=== PATIENT | male | born 1965 | race American Indian/Alaskan Native ===

== ENCOUNTER 2016-05-15 22:22 | Emergency (ER) | payer SELFPAY ==
[2016-05-15 22:50] VITALS: BP 150/99
[2016-05-15 23:19] LABS: Basophils % (Auto) 0.6 % (0.0-1.8); Eosinophils % (Auto) 1.5 % (0.0-4.3); Hematocrit 31.1 % (35.5-45.6); Hemoglobin 10.6 gm/dl (11.8-15.2); Mean Corpuscular HGB Conc 34 % (32-34); Mean Corpuscular Hemoglobin 29 pg (28-32); Mean Corpuscular Volume 84 fl (84-94); Platelet Count 244 K/mm3 (140-440); Red Blood Count 3.72 M/mm3 (3.65-5.03); White Blood Count 9.3 K/mm3 (4.5-11.0)
[2016-05-15 23:22] LABS: Red Cell Distribution Width 20.4 % (13.2-15.2)
[2016-05-15 23:28] LABS: BUN/Creatinine Ratio 7.27; Blood Urea Nitrogen 8 mg/dL (9-20); Calcium 8.3 mg/dL (8.4-10.2); Carbon Dioxide 27 mmol/L (22-30); Chloride 98.8 mmol/L (98-107); Glucose 93 mg/dL (75-100); Potassium 3.1 mmol/L (3.6-5.0); Sodium 139 mmol/L (137-145)
[2016-05-15 23:29] LABS: Anion Gap 16 mmol/L
--- NOTE | 2016-05-16 02:49 | Emergency Department Report ---
ED General Adult HPI - General Chief complaint: Chest Pain Stated complaint: SOB/DIZZINESS Time Seen by Provider: 05/16/16 02:28 Source: patient Mode of arrival: Ambulatory Limitations: No Limitations - History of Present Illness Initial comments: 50-year-old male presents to the emergency department complaining of 4 days of difficulty breathing, lightheadedness, and weakness in his legs. Symptoms are intermittent. He states he has been out of his Cardizem for the past 4 days. He states the symptoms are the same as previous times when he has run out of his medication. He denies any chest pain. At this time, the patient reports his symptoms have resolved. There are no other complaints. -: Gradual, days(s) (4) Severity scale (0 -10): 0 Consistency: intermittent Improves with: none Worsens with: none Associated Symptoms: shortness of breath, weakness Treatments Prior to Arrival: none - Related Data Previous Rx's Medication Instructions Recorded Last Taken Type Apixaban [Eliquis] 5 mg PO Q12HR #60 tablet 04/04/16 05/16/16 Rx Atenolol [Tenormin] 25 mg PO DAILY #90 tab 04/04/16 05/16/16 Rx Furosemide [Lasix TAB] 40 mg PO QDAY #90 tablet 04/04/16 05/16/16 Rx Methimazole [Tapazole] 7.5 mg PO Q12H 30 Days 04/04/16 05/16/16 Rx Diltiazem Cd [Cardizem CD] 180 mg PO QDAY #30 capsule 05/16/16 Unknown Rx Allergies Allergy/AdvReac Type Severity Reaction Status Date / Time No Known Allergies Allergy Verified 04/23/15 13:52 ED Review of Systems ROS: Stated complaint: SOB/DIZZINESS Other details as noted in HPI Comment: All other systems reviewed and negative Constitutional: weakness Respiratory: shortness of breath Cardiovascular: syncope (lightheadedness, no loss of consciousness) ED Past Medical Hx - Past Medical History Previous Medical History?: Yes Hx Hypertension: Yes Hx Congestive Heart Failure: Yes Hx Diabetes: No Hx Asthma: No Hx COPD: No Hx HIV: No Additional medical history: HYPERTHYROIDISM. Vertigo. Atrial fibrillation - Surgical History Past Surgical History?: No - Family History Family history: no significant - Social History Smoking Status: Light Tobacco Smoker Substance Use Type: Alcohol - Medications Home Medications: Home Medications Medication Instructions Recorded Confirmed Last Taken Type Apixaban [Eliquis] 5 mg PO Q12HR #60 tablet 04/04/16 05/16/16 05/16/16 Rx Atenolol [Tenormin] 25 mg PO DAILY #90 tab 04/04/16 05/16/16 05/16/16 Rx Furosemide [Lasix TAB] 40 mg PO QDAY #90 tablet 04/04/16 05/16/16 05/16/16 Rx Methimazole [Tapazole] 7.5 mg PO Q12H 30 Days 04/04/16 05/16/16 05/16/16 Rx Diltiazem Cd [Cardizem CD] 180 mg PO QDAY #30 capsule 05/16/16 Unknown Rx ED Physical Exam - General Limitations: No Limitations General appearance: alert, in no apparent distress - Head Head exam: Present: atraumatic, normocephalic - Eye Eye exam: Present: normal appearance, PERRL, EOMI - ENT ENT exam: Present: normal exam, normal orophraynx, mucous membranes moist - Neck Neck exam: Present: normal inspection, full ROM. Absent: tenderness - Respiratory Respiratory exam: Present: normal lung sounds bilaterally. Absent: respiratory distress - Cardiovascular Cardiovascular Exam: Present: regular rate, irregular rhythm, normal heart sounds - GI/Abdominal GI/Abdominal exam: Present: soft, normal bowel sounds. Absent: distended, tenderness - Extremities Exam Extremities exam: Present: normal inspection, full ROM. Absent: tenderness - Back Exam Back exam: Present: normal inspection, full ROM. Absent: tenderness - Neurological Exam Neurological exam: Present: alert, oriented X3. Absent: motor sensory deficit - Skin Skin exam: Present: warm, dry, intact ED Course Vital Signs 05/15/16 05/16/16 22:30 02:31 Temperature 97.9 F Pulse Rate 94 H Respiratory 22 18 Rate Blood Pressure 150/99 O2 Sat by Pulse 100 98 Oximetry ED Medical Decision Making - Lab Data Result diagrams: 05/15/16 22:57 05/15/16 22:57 - EKG Data -: EKG Interpreted by Me EKG shows normal: QRS complexes, ST-T waves Rate: normal - EKG Data When compared to previous EKG there are: no significant change Interpretation: unchanged when compared t (04/03/2016) - Medical Decision Making Lab results reviewed and discussed with the patient. Patient has had 2 negative troponins. His rate is controlled. Patient will be provided with a prescription for his Cardizem. Patient will be discharged home to follow up with his primary care physician on May 20 his previous scheduled. - Differential Diagnosis atrial fibrillation, atypical chest pain Critical care attestation.: If time is entered above; I have spent that time in minutes in the direct care of this critically ill patient, excluding procedure time. ED Disposition Clinical Impression: Acute dyspnea Disposition: DISCHARGED TO HOME OR SELFCARE Is pt being admited?: No Condition: Stable Instructions: Atrial Fibrillation (ED) Prescriptions: Diltiazem Cd [Cardizem CD] 180 mg PO QDAY #30 capsule Referrals: PRIMARY CARE, [Primary Care Provider] - 3-5 Days Time of Disposition: 02:51
== END 2016-05-16 03:01 | disposition home or self-care (01) ==
LOC: ED 22:22
DX: R06.00 Dyspnea, unspecified (principal); I10 Essential (primary) hypertension; I50.9 Heart failure, unspecified; E05.90 Thyrotoxicosis, unspecified without thyrotoxic crisis or storm; I48.91 Unspecified atrial fibrillation; F17.200 Nicotine dependence, unspecified, uncomplicated
CPT/HCPCS: 36415; 80048; 84484; 85025; 93005; 93010

== ENCOUNTER 2019-02-21 16:14 | Emergency (ER) | payer SELFPAY ==
--- NOTE | 2019-02-21 16:29 | Event Note ---
ED Screening Note Date of service: 02/21/19 Time: 16:26 ED Screening Note: This is a 53 y.o. M. that presents to the ER with swelling and pain to bilateral 2nd, 3rd, & 4th fingers x 1 week. Patient states he he had an infection in right 5th finger and had to have surgery 2 months ago. Patient reports applying soap with Epson salt, rubbing alcohol, and topical antibiotics with worsening symptoms. This initial assessment/diagnostic orders/clinical plan/treatment(s) is/are subject to change based on patients health status, clinical progression and re- assessment by fellow clinical providers in the ED. Further treatment and workup at subsequent clinical providers discretion. Patient/guardian urged not to elope from the ED as their condition may be serious if not clinically assessed and managed. Initial orders include: Main ED for further evaluation
[2019-02-21] MEDS ORDERED: NORCO 7.5/325 PO ONE (21:36)
--- NOTE | 2019-02-21 22:58 | Emergency Department Report ---
Upper Extremity - HPI Chief Complaint: Wound/Laceration Stated Complaint: FINGERS INFECTION Time Seen by Provider: 02/21/19 16:26 Upper Extremity: Left Index Finger, Left Middle Finger, Left Ring Finger, Right Index Finger, Right Middle Finger, Right Ring Finger Occurred When: >5 Days (2 months ago) Mechanism: Other (unknown) Severity: moderate Symptoms: Yes Limited Range of Movement, Yes Swelling Other History: 53-year-old male with history of hypertension, CHF, atrial fibrillation (taken off of anticoagulation "a long time ago") presents to ED with painful fingertips for the last 2 months. Patient states it initially started out as hard areas on the tips of his fingers. Patient states he saw his PCP, who told him 2 months ago that it appeared to be calcium deposits. Patient states this hard area has expanded over the last 2 months over his right and left index, middle, ring fingers. He reports slight swelling to all 10 of his fingers. Unable to make a fist due to the swelling. States the skin of all of his fingers feels tight. Patient denies that they have turned black or dark in color. However, patient reports increasing pain, especially over the last 2 weeks. Patient denies fever. Patient reports that he smokes cigarettes.. ED Review of Systems ROS: Stated complaint: FINGERS INFECTION Other details as noted in HPI Comment: All other systems reviewed and negative Constitutional: denies: chills, fever Musculoskeletal: as per HPI ED Past Medical Hx - Past Medical History Previous Medical History?: Yes Hx Hypertension: Yes Hx Congestive Heart Failure: Yes Hx Diabetes: No Hx Asthma: No Hx COPD: No Hx HIV: No Additional medical history: HYPERTHYROIDISM. Vertigo. Atrial fibrillation - Surgical History Past Surgical History?: No - Social History Smoking Status: Current Every Day Smoker Substance Use Type: Alcohol - Medications Home Medications: Home Medications Medication Instructions Recorded Confirmed Last Taken Type Apixaban [Eliquis] 5 mg PO Q12HR #60 tablet 04/04/16 05/16/16 05/16/16 Rx Atenolol [Tenormin] 25 mg PO DAILY #90 tab 04/04/16 05/16/16 05/16/16 Rx Furosemide [Lasix TAB] 40 mg PO QDAY #90 tablet 04/04/16 05/16/16 05/16/16 Rx methIMAzole [Tapazole] 7.5 mg PO Q12H 30 Days tablet 04/04/16 05/16/16 05/16/16 Rx dilTIAZem CD [Cardizem CD] 180 mg PO QDAY #30 capsule 05/16/16 Unknown Rx HYDROcodone/APAP 5-325 [[place] 1 each PO Q6HR PRN #10 tablet 02/21/19 Unknown Rx 5/325] Upper Extremity Exam - Exam General: Vital signs noted. No distress. Alert and acting appropriately. Head and Torso: No HEENT Abnormality, No Neck Tenderness, No Chest/Lungs Abnormality, No Abdominal Tenderness, No Back Tenderness Shoulder Exam: No Normal Range of Motion in Shoulder Arm Exam: No Arm Deformity Elbow: No Elbow Deformity Forearm: No Forearm Tenderness, No Forearm Deformity Wrist: Yes Normal ROM in Wrist, No Wrist Deformity Hand: Yes Digit Tenderness (driving, ulcerations to the distal tips of bilateral second, third, fourth fingers; no purulent discharge present; no necrosis, black or dark areas on the fingers; all 10 fingers are slightly swollen and skin appears quite smooth and shiny; patient unable to close and make a fist with either hand due to decreased range of motion of the fingers; cap refill normal; radial pulses strong bilaterally; fingers/hands are pink and warm), No Hand Tend erness, No Hand Deformity, No Normal ROM in Digit(s) CMS Exam: Yes Normal Distal Pulses, Yes Normal Capillary Refill ED Course Vital Signs 02/21/19 02/21/19 02/21/19 16:24 16:26 21:15 Temperature 97.6 F 98.2 F Pulse Rate 52 L 55 L Respiratory 18 24 Rate Blood Pressure 96/54 Blood Pressure 108/61 [Right] O2 Sat by Pulse 96 100 Oximetry ED Medical Decision Making - Medical Decision Making 53-year-old smoker with fingertip lesions of bilateral hands 2 months. Differential includes Buerger's disease, scleroderma, vasculitis. These lesions have been ongoing 2 months. Patient has normal cap refill, color, temperature in the fingers proximal to the lesion and hand. Pulses are palpable and strong bilaterally. The fingers do not appear to be necrotic. Smoking cessation advised. Outpatient follow-up given for vascular and dermatology. Patient advised to follow up with his PCP. - Differential Diagnosis vasculitis, Buerger's disease, scleroderma, embolic disease Critical care attestation.: If time is entered above; I have spent that time in minutes in the direct care of this critically ill patient, excluding procedure time. ED Disposition Clinical Impression: Cutaneous vasculitis Disposition: DC- TO HOME OR SELFCARE Is pt being admited?: No Condition: Stable Instructions: How to Stop Smoking (ED) Additional Instructions: Home Aide: Dr Aren Low [address] [place] [address] [email or web address] [phone] Prescriptions: HYDROcodone/APAP 5-325 [[place] 5/325] 1 each PO Q6HR PRN #10 tablet PRN Reason: Pain Referrals: PRIMARY CARE, [Primary Care Provider] - 3-5 Days MIKE RAHMAN MD [Staff Physician] - 3-5 Days Time of Disposition: 23:10
[2019-02-22 06:29] VITALS: BP 115/75
== END 2019-02-21 23:25 | disposition home or self-care (01) ==
LOC: ED 16:14
DX: L95.9 Vasculitis limited to the skin, unspecified (principal); I11.0 Hypertensive heart disease with heart failure; I50.9 Heart failure, unspecified; F17.200 Nicotine dependence, unspecified, uncomplicated; E05.00 Thyrotoxicosis with diffuse goiter without thyrotoxic crisis or storm; Z79.899 Other long term (current) drug therapy
CPT/HCPCS: 99282

== ENCOUNTER 2019-10-03 11:14 | Inpatient (IN) | payer OTHER ==
[2019-10-03] MEDS ORDERED: FUROSEMIDE 40 MG/4 ML INJ IV ONE (11:35)
--- NOTE | 2019-10-03 11:40 | Emergency Department Report ---
ED Shortness of Breath HPI - General Chief Complaint: Dyspnea/Respdistress Stated Complaint: SOB Time Seen by Provider: 10/03/19 11:31 Source: patient Mode of arrival: Ambulatory Limitations: No Limitations - History of Present Illness Initial Comments: Patient is 53 years old male with history of CHF ejection fraction of 20%, hypertension and atrial fibrillation. Patient presented to the ER complaining of shortness of breath difficulty breathing and lower extremity swelling for the last 2 days. Patient stated that he ran out of all his medication. Patient currently denying any chest pain, fever, chills, nausea or vomiting. Patient stated that his coughing frothy whitish sputum. MD Complaint: shortness of breath - Related Data Previous Rx's Medication Instructions Recorded Last Taken Type Apixaban [Eliquis] 5 mg PO Q12HR #60 tablet 04/04/16 05/16/16 Rx Furosemide [Lasix TAB] 40 mg PO QDAY #90 tablet 04/04/16 05/16/16 Rx atenoloL [Tenormin] 25 mg PO DAILY #90 tab 04/04/16 05/16/16 Rx methIMAzole [Tapazole] 7.5 mg PO Q12H 30 Days tablet 04/04/16 05/16/16 Rx dilTIAZem CD [Cardizem CD] 180 mg PO QDAY #30 capsule 05/16/16 Unknown Rx HYDROcodone/APAP 5-325 [[place] 1 each PO Q6HR PRN #10 tablet 02/21/19 Unknown Rx 5/325] Allergies Allergy/AdvReac Type Severity Reaction Status Date / Time No Known Allergies Allergy Verified 10/03/19 11:18 ED Review of Systems ROS: Stated complaint: SOB Other details as noted in HPI Comment: All other systems reviewed and negative Constitutional: denies: chills, fever Respiratory: cough, orthopnea, shortness of breath, SOB with exertion, SOB at rest. denies: wheezing Cardiovascular: denies: chest pain, palpitations Gastrointestinal: denies: abdominal pain, nausea, vomiting, diarrhea Musculoskeletal: denies: back pain Neurological: denies: headache, weakness, numbness, paresthesias, confusion ED Past Medical Hx - Past Medical History Previous Medical History?: Yes Hx Hypertension: Yes Hx Congestive Heart Failure: Yes Hx Diabetes: No Hx Asthma: No Hx COPD: No Hx HIV: No Additional medical history: HYPERTHYROIDISM. Vertigo. Atrial fibrillation - Surgical History Past Surgical History?: No - Social History Smoking Status: Current Every Day Smoker Substance Use Type: None - Medications Home Medications: Home Medications Medication Instructions Recorded Confirmed Last Taken Type Apixaban [Eliquis] 5 mg PO Q12HR #60 tablet 04/04/16 05/16/16 05/16/16 Rx Furosemide [Lasix TAB] 40 mg PO QDAY #90 tablet 04/04/16 05/16/16 05/16/16 Rx atenoloL [Tenormin] 25 mg PO DAILY #90 tab 04/04/16 05/16/16 05/16/16 Rx methIMAzole [Tapazole] 7.5 mg PO Q12H 30 Days tablet 04/04/16 05/16/16 05/16/16 Rx dilTIAZem CD [Cardizem CD] 180 mg PO QDAY #30 capsule 05/16/16 Unknown Rx HYDROcodone/APAP 5-325 [[place] 1 each PO Q6HR PRN #10 tablet 02/21/19 Unknown Rx 5/325] ED Physical Exam - General Limitations: No Limitations General appearance: alert, in distress (Moderate respiratory distress.) - Head Head exam: Present: atraumatic - Eye Eye exam: Present: normal appearance - ENT ENT exam: Present: normal exam, normal orophraynx, mucous membranes moist - Neck Neck exam: Present: normal inspection, full ROM. Absent: tenderness, meningismus - Respiratory Respiratory exam: Present: respiratory distress, rales, decreased breath sounds. Absent: wheezes - Cardiovascular Cardiovascular Exam: Present: tachycardia, irregular rhythm, gallop - GI/Abdominal GI/Abdominal exam: Present: soft. Absent: distended, tenderness, guarding, rebound - Extremities Exam Extremities exam: Present: normal capillary refill, pedal edema. Absent: calf tenderness - Back Exam Back exam: Present: normal inspection, full ROM. Absent: CVA tenderness (R), CVA tenderness (L) - Neurological Exam Neurological exam: Present: alert, oriented X3, CN II-XII intact, normal gait, reflexes normal. Absent: motor sensory deficit - Psychiatric Psychiatric exam: Present: normal mood - Skin Skin exam: Present: warm, intact, normal color ED Course Vital Signs 10/03/19 10/03/19 10/03/19 11:19 12:13 12:15 Temperature 97.8 F Pulse Rate 134 H 109 H 117 H Respiratory 28 H 44 H Rate Blood Pressure 125/89 135/95 O2 Sat by Pulse 95 Oximetry 10/03/19 13:00 Temperature Pulse Rate 170 H Respiratory 23 Rate Blood Pressure 135/95 O2 Sat by Pulse Oximetry ED Medical Decision Making - Lab Data Result diagrams: 10/03/19 12:16 10/03/19 12:16 - EKG Data -: EKG Interpreted by Me Rate: tachycardia - EKG Data 10/03/19 13:12 Atrial fibrillation, controlled rate. - Radiology Data Radiology results: report reviewed - Medical Decision Making Patient is 53 years old male with history of CHF ejection fraction of 20%, hypertension and atrial fibrillation. Patient presented to the ER complaining o f shortness of breath difficulty breathing and lower extremity swelling for the last 2 days. Patient stated that he ran out of all his medication. Patient currently denying any chest pain, fever, chills, nausea or vomiting. Patient stated that his coughing frothy whitish sputum. Patient received Lasix 60 mg IV. EKG showed atrial fibrillation with a controlled rate of 100 however patient is in the 90s on the monitor so no rate control medication was given at this moment. Labs reviewed and showed significantly elevated BNP and a chest x-ray showed pulmonary congestion. Patient labs showed a potassium of 2.4, this is replaced by 20 mEq of potassium IV and I also added a 40 mEq of K. Dur. I discussed the patient with Dr. Rossi, she advised to admit to Dr. Garcia. Critical Care Time: Yes Critical care time in (mins) excluding proc time.: 30 Critical care attestation.: If time is entered above; I have spent that time in minutes in the direct care of this critically ill patient, excluding procedure time. ED Disposition Clinical Impression: CHF exacerbation, Acute hypokalemia Disposition: OP ADMIT IP TO THIS HOSP Is pt being admited?: Yes Condition: Stable Referrals: SERGIO GUSTAFSON MD [Primary Care Provider] - 3-5 Days
[2019-10-03 12:20] LABS: Basophils # (Auto) 0.1 K/mm3 (0.0-0.1); Basophils % (Auto) 0.6 % (0.0-1.8); Eosinophils # (Auto) 0.1 K/mm3 (0.0-0.4); Eosinophils % (Auto) 0.5 % (0.0-4.3); Hematocrit 25.6 % (35.5-45.6); Hemoglobin 8.9 gm/dl (11.8-15.2); Lymphocytes # (Auto) 2.3 K/mm3 (1.2-5.4); Lymphocytes % (Auto) 21.5 % (13.4-35.0); Mean Corpuscular HGB Conc 35 % (32-34); Mean Corpuscular Volume 93 fl (84-94); Monocytes % (Auto) 9.6 % (0.0-7.3); Platelet Count 333 K/mm3 (140-440); Red Blood Count 2.77 M/mm3 (3.65-5.03)
[2019-10-03 12:36] LABS: INR 1.13 (0.87-1.13)
[2019-10-03 12:37] LABS: Partial Thromboplastin Time 34.8 Sec. (24.2-36.6)
[2019-10-03 12:40] LABS: BUN/Creatinine Ratio 6; Blood Urea Nitrogen 4 mg/dL (9-20); Calcium 7.5 mg/dL (8.4-10.2); Hemolysis Index 82
[2019-10-03 12:48] LABS: Alanine Aminotransferase 8 units/L (7-56); Albumin 3.2 g/dL (3.9-5); Bilirubin,Direct < 0.2 mg/dL (0-0.2)
--- NOTE | 2019-10-03 13:01 | XRay Report ---
CHEST 1 VIEW INDICATION: Dyspnea. COMPARISON: 04/03/2016. FINDINGS: Support devices: None. Heart: Moderate cardiomegaly. Lungs/Pleura: No acute air space or interstitial disease. Additional findings: None. IMPRESSION: Moderate cardiomegaly. Signer Name: Nikita Bashir MD Signed: 10/03/2019 12:56 PM Workstation Name: [id number]
[2019-10-03] MEDS ORDERED: POTASSIUM CHLORIDE ER 20 MEQ TAB PO ONE (13:09)
[2019-10-03] MEDS: POTASSIUM CHLORIDE 10 MEQ 10 MEQ/100 ML BAG IV SCH ×2 (14:25→15:31)
--- NOTE | 2019-10-03 14:46 | History and Physical Report ---
History of Present Illness Date of examination: 10/03/19 Date of admission: 10/03/19 13:15 Chief complaint: Shortness of breath History of present illness: Patient is 53 yo with chronic CHF, hypertension, hyperthyroidism,atrial fibrillation. He presents to Emergency Department with shortness of breath and swelling of legs for few days. Patient states he has been on Lasix for CHF but ran out of all medications including Lasix about 1 week ago. Shortness of breath is worse on lying flat and worse on exertion. He denies any chest pain. Patient was seen and evaluated in Emergency Department. He is diagnosed with acute respiratory failure due to CHF excaerbation. Also has hypokalemia with Potassium of 2.3. In addition he has rapid atrial fibrillation he was given lasix iv. Will admit to telemetry. Past History Past Medical History: atrial fib, heart failure, hyperthyroidism Past Surgical History: No surgical history Social history: smoking, full code. denies: alcohol abuse Family history: no significant family history Medications and Allergies Allergies Allergy/AdvReac Type Severity Reaction Status Date / Time No Known Allergies Allergy Verified 10/03/19 11:18 Home Medications Medication Instructions Recorded Confirmed Last Taken Type Furosemide [Lasix TAB] 40 mg PO QDAY #90 tablet 04/04/16 10/03/19 05/16/16 Rx atenoloL [Tenormin] 25 mg PO DAILY #90 tab 04/04/16 10/03/19 05/16/16 Rx methIMAzole [Tapazole] 7.5 mg PO Q12H 30 Days tablet 04/04/16 10/03/19 05/16/16 Rx dilTIAZem CD [Cardizem CD] 180 mg PO QDAY #30 capsule 05/16/16 10/03/19 Unknown Rx HYDROcodone/APAP 5-325 [[place] 1 each PO Q6HR PRN #10 tablet 02/21/19 10/03/19 Unknown Rx 5/325] Esomeprazole Magnesium [NexIUM] 40 mg PO QDAY 10/03/19 10/03/19 Unknown History Active Meds: Active Medications Potassium Chloride (Kcl 10meq/100ml) 10 meq in 100 mls @ 100 mls/hr IV Q1H AFSHAN Stop: 10/03/19 15:59 Last Admin: 10/03/19 14:25 Dose: 100 mls/hr Documented by: Review of Systems All systems: negative (No fever. no abdominal pain, no urinary symptoms. All other systems reviewed and are negative.) Exam - Physical Exam Narrative exam: GEN: Not in acute distress, lying in bed HEENT: Normocephalic, atraumatic, Neck: supple, No JVD Lungs: Bilateral ralesy, heart;S1 and S2 irreg, irreg, rapid no murmurs, rubs or gallop Abd:soft, non tender, non distended, normal bowel sounds, Ext: Bilateral edema, no clubbing, no cyanosis, Neuro: Awake,alert,oriented X3 , no focal signs, - Constitutional Vitals: Temp Pulse Resp BP Pulse Ox 97.8 F 170 H 23 135/95 95 10/03/19 11:19 10/03/19 13:00 10/03/19 13:00 10/03/19 13:00 10/03/19 11:19 HEART Score - HEART Score Troponin: Troponin T 0.021 ng/mL (0.00-0.029) 10/03/19 12:16 Results - Labs CBC & Chem 7: 10/04/19 05:06 10/05/19 07:01 Labs: Abnormal lab results 10/03/19 10/03/19 10/03/19 Range/Units 12:16 12:16 12:16 RBC 2.77 L (3.65-5.03) M/mm3 Hgb 8.9 L (11.8-15.2) gm/dl Hct 25.6 L (35.5-45.6) % MCHC 35 H (32-34) % RDW 18.0 H (13.2-15.2) % [place] % (Auto) 9.6 H (0.0-7.3) % [place] # 1.0 H (0.0-0.8) K/mm3 Potassium 2.4 L* (3.6-5.0) mmol/L Chloride 91.7 L (98-107) mmol/L Carbon Dioxide 32 H (22-30) mmol/L BUN 4 L (9-20) mg/dL Creatinine 0.7 L (0.8-1.5) mg/dL Glucose 107 H (75-100) mg/dL Calcium 7.5 L (8.4-10.2) mg/dL NT-Pro-B Natriuret Pep 9538 H (0-900) pg/mL Albumin 3.2 L (3.9-5) g/dL Assessment and Plan CHF exacerbation patient ran out of meds including lasix 1 week ago Admit to Telemetry Lasix iv Beta blockers Consult cardiology Obtain Echo to determine systolic versus diastolic strict Fluid I/O Acute respiratory failure due to CHF exacerbation supplemental Oxygen Severe hypokalemia Replete iv, recheck today Afib w RVR Treat with betablockers cardiology consult Hyperthyroidism Continue Tapazole Full code status.
[2019-10-03] MEDS ORDERED: METOPROLOL TARTRATE 5 MG/5 ML INJ IV STA (14:48)
[2019-10-03] MEDS ORDERED: ACETAMINOPHEN 325 MG TAB PO PRN (15:27)
[2019-10-03] MEDS ORDERED: ALBUTEROL 2.5 MG/3 ML NEBU IH PRN (15:27)
[2019-10-03] MEDS ORDERED: ONDANSETRON 4 MG/2 ML INJ IV PRN (15:27)
[2019-10-03] MEDS ORDERED: POTASSIUM CHLORIDE 10 MEQ 10 MEQ/100 ML BAG IV ONE (15:28)
[2019-10-03] MEDS ORDERED: METOPROLOL TARTRATE 5 MG/5 ML INJ IV ONE (15:30)
[2019-10-03] MEDS ORDERED: HYDROcodone/ACETAMINOPHEN 5-325 MG TAB PO PRN (15:30)
[2019-10-03] MEDS ORDERED: MAGNESIUM SULFATE 4 GM/100 ML BAG IV ONE (15:55)
--- NOTE | 2019-10-03 17:22 | Consultation ---
History of Present Illness Consult date: 10/03/19 Consult reason: atrial fibrillation History of present illness: The patient is a 53-year-old man with multiple medical problems. He has chronic atrial fibrillation on a rate control strategy. He was previously on Eliquis for oral anticoagulation but states that his doctors at [facility] discontinued anticoagulation due to nosebleeds. He does not see a patient care assistant on a regular basis. Most recent cardiac work-up in this hospital was 4 years ago, an echocardiogram at that time reported a left ventricular ejection frac tion of 60%. Comorbidities include chronic hypertension, chronic tobacco abuse, and hyperthyroidism. He is on antithyroid therapy and a TSH on this admission is normal. The patient is admitted to the hospital at this time with shortness of breath, cough and lower extremity edema. There was no chest pain. On presentation, his ECG is atrial fibrillation with mildly increased ventricular rate, and nonspecific ST and T wave abnormalities. Pertinent laboratory abnormalities include anemia with a hematocrit of 25, hypokalemia on presentation with a potassium of 2.4. The initial cardiac troponin level was normal, and the TSH level as reported was normal at 2.1. Chest x-ray shows moderate to severe cardiomegaly with mild increase in bilateral pulmonary vascularity. Findings suggest mild interstitial edema. Past History Past Medical History: atrial fib, heart failure, hyperthyroidism, hypertension Social history: smoking, full code. denies: alcohol abuse Family history: no significant family history Medications and Allergies Allergies Allergy/AdvReac Type Severity Reaction Status Date / Time No Known Allergies Allergy Verified 10/03/19 11:18 Home Medications Medication Instructions Recorded Confirmed Last Taken Type Furosemide [Lasix TAB] 40 mg PO QDAY #90 tablet 04/04/16 10/03/19 05/16/16 Rx atenoloL [Tenormin] 25 mg PO DAILY #90 tab 04/04/16 10/03/19 05/16/16 Rx methIMAzole [Tapazole] 7.5 mg PO Q12H 30 Days tablet 04/04/16 10/03/19 05/16/16 Rx dilTIAZem CD [Cardizem CD] 180 mg PO QDAY #30 capsule 05/16/16 10/03/19 Unknown Rx HYDROcodone/APAP 5-325 [[place] 1 each PO Q6HR PRN #10 tablet 02/21/19 10/03/19 Unknown Rx 5/325] Esomeprazole Magnesium [NexIUM] 40 mg PO QDAY 10/03/19 10/03/19 Unknown History Active Meds: Active Medications Acetaminophen (Tylenol) 650 mg PO Q4H PRN PRN Reason: Pain MILD(1-3)/Fever >100.5/TRIPATHI Acetaminophen/Hydrocodone Bitart ([place] 5/325) 1 each PO Q6HR PRN PRN Reason: PAIN Albuterol (Proventil) 2.5 mg IH Q4HRT PRN PRN Reason: Shortness Of Breath Atenolol (Tenormin) 25 mg PO DAILY AFSHAN Diltiazem HCl (Cardizem Cd) 180 mg PO QDAY AFSHAN Enoxaparin Sodium (Enoxaparin) 70 mg SUB-Q Q12HR AFSHAN Magnesium Sulfate (Magnesium Sulfate 4gm/100ml) 4 gm in 100 mls @ 25 mls/hr IV ONCE ONE Stop: 10/03/19 19:54 Methimazole (Tapazole) 7.5 mg PO Q12H AFSHAN Ondansetron HCl (Zofran) 4 mg IV Q8H PRN PRN Reason: Nausea And Vomiting Potassium Chloride (K-Dur) 40 meq PO Q4H AFSHAN Stop: 10/03/19 20:01 Sodium Chloride (Sodium Chloride Flush Syringe 10 Ml) 10 ml IV BID AFSHAN Sodium Chloride (Sodium Chloride Flush Syringe 10 Ml) 10 ml IV PRN PRN PRN Reason: LINE FLUSH Review of Systems Cardiovascular: palpitations, rapid/irregular heart beat, edema, shortness of breath, no chest pain, no orthopnea, no syncope, no lightheadedness Physical Examination Vital Signs Temp Pulse Resp BP Pulse Ox 97.8 F 134 H 28 H 125/89 95 10/03/19 11:19 10/03/19 11:19 10/03/19 11:19 10/03/19 11:19 10/03/19 11:19 General appearance: mild distress HEENT: Positive: PERRL Neck: Positive: neck supple Cardiac: Positive: irregularly irregular Lungs: Positive: Decreased Breath Sounds Neuro: Positive: Grossly Intact Abdomen: Positive: Soft Male genitourinary: Positive: deferred Skin: Positive: Clear Extremities: Present: edema (trace) Results 10/03/19 12:16 10/03/19 12:16 Cardiac Enzymes 10/03/19 Range/Units 12:16 AST 22 (5-40) units/L Coagulation 10/03/19 Range/Units 12:16 PT 14.6 (12.2-14.9) Sec. INR 1.13 (0.87-1.13) APTT 34.8 (24.2-36.6) Sec. CBC 10/03/19 Range/Units 12:16 WBC 10.6 (4.5-11.0) K/mm3 RBC 2.77 L (3.65-5.03) M/mm3 Hgb 8.9 L (11.8-15.2) gm/dl Hct 25.6 L (35.5-45.6) % Plt Count 333 (140-440) K/mm3 Lymph # 2.3 (1.2-5.4) K/mm3 [place] # 1.0 H (0.0-0.8) K/mm3 Eos # 0.1 (0.0-0.4) K/mm3 Baso # 0.1 (0.0-0.1) K/mm3 Comprehensive Metabolic Panel 10/03/19 06 Range/Units 12:16 12:16 Sodium 138 (137-145) mmol/L Potassium 2.4 L* (3.6-5.0) mmol/L Chloride 91.7 L (98-107) mmol/L Carbon Dioxide 32 H (22-30) mmol/L BUN 4 L (9-20) mg/dL Creatinine 0.7 L (0.8-1.5) mg/dL Glucose 107 H (75-100) mg/dL Calcium 7.5 L (8.4-10.2) mg/dL Direct Bilirubin < 0.2 (0-0.2) mg/dL AST 22 (5-40) units/L ALT 8 (7-56) units/L Alkaline Phosphatase 77 (35-129) units/L Total Protein 7.3 (6.3-8.2) g/dL Albumin 3.2 L (3.9-5) g/dL EKG interpretations - Telemetry EKG Rhythm: Atrial Fibrillation Assessment and Plan - Patient Problems (1) CHF exacerbation Current Visit: Yes Status: Acute Plan to address problem: The patient has cough, shortness of breath and abnormal chest x-ray. In add ition to heart failure exacerbation, COVID-19 infection needs to be in the differential diagnosis. We will recommend to internal medicine to consider testing patient for COVID-19. For heart failure, we will continue diuretics, obtain an echocardiogram for left ventricular function assessment, and further cardiac medical therapy will depend on clinical course. (2) Atrial fibrillation with RVR Current Visit: No Status: Acute Plan to address problem: Patient has chronic atrial fibrillation on a rate control strategy. He is currently on diltiazem and atenolol at low doses. We will continue optimal rate control as tolerated. The patient states that his long-term oral anticoagulation was discontinued a year ago due to nosebleeds. On this presentation we also found his markedly anemic with a hematocrit of 25. However, future stroke risk is high, and judicious resumption of oral anticoagulation needs to be considered.
[2019-10-03] MEDS ORDERED: METOPROLOL TARTRATE 5 MG/5 ML INJ IV PRN (18:02)
[2019-10-03] MEDS: dilTIAZem CD 180 MG CAP PO SCH (18:55)
[2019-10-03] MEDS: ENOXAPARIN 100 MG/1 ML INJ SUB-Q SCH ×2 (18:56→23:04)
[2019-10-03] MEDS: POTASSIUM CHLORIDE ER 20 MEQ TAB PO SCH ×2 (18:57→22:57)
[2019-10-03] MEDS: methIMAzole 5 MG TAB PO SCH (18:57)
[2019-10-03] MEDS: atenoloL 25 MG TAB PO SCH (18:58)
[2019-10-03] MEDS: POTASSIUM CHLORIDE 20 MEQ 20 MEQ/100 ML BAG IV SCH ×2 (22:00→22:59)
[2019-10-04] MEDS: methIMAzole 5 MG TAB PO SCH ×2 (04:07→17:23)
[2019-10-04 05:40] LABS: Basophils % (Auto) 0.6 % (0.0-1.8); Eosinophils % (Auto) 0.6 % (0.0-4.3); Hematocrit 25.3 % (35.5-45.6); Hemoglobin 8.6 gm/dl (11.8-15.2); Lymphocytes # (Auto) 1.7 K/mm3 (1.2-5.4); Lymphocytes % (Auto) 21.8 % (13.4-35.0); Mean Corpuscular HGB Conc 34 % (32-34); Mean Corpuscular Volume 94 fl (84-94); Monocytes # (Auto) 0.7 K/mm3 (0.0-0.8); Monocytes % (Auto) 9.5 % (0.0-7.3); Platelet Count 308 K/mm3 (140-440); Red Blood Count 2.69 M/mm3 (3.65-5.03)
[2019-10-04 05:53] LABS: BUN/Creatinine Ratio 7; Blood Urea Nitrogen 5 mg/dL (9-20); Calcium 7.5 mg/dL (8.4-10.2); Hemolysis Index 60
[2019-10-04] MEDS ORDERED: NON-FORMULARY EACH (Esomeprazole Magnesium [Nexium] 40 MG) PO SCH (10:00)
--- NOTE | 2019-10-04 10:04 | Progress Note ---
Assessment and Plan - Patient Problems (1) Congestive heart failure Current Visit: No Status: Acute Qualifiers: Qualified Code(s): I50.9 - Heart failure, unspecified Plan to address problem: Sodium/fluid restriction. Echocardiogram for LVEF assessment. Continue diuretics. Further cardiac medical therapy will depend on clinical course. (2) Atrial fibrillation with RVR Current Visit: No Status: Acute Plan to address problem: Atrial fibrillation, chronic rate control strategy. on diltiazem and atenolol at low doses. patient states that his long-term oral anticoagulation was discontinued a year ago due to nosebleeds. on this presentation we also found his markedly anemic with a hematocrit of 25. Subjective Date of service: 10/04/19 Interval history: Afib with a well controlled ventricular rate on telemetry. Objective Vital Signs Temp Pulse Resp BP Pulse Ox 10/04/19 09:06 95 H 10/04/19 07:28 97.4 F L 122 H 20 117/83 93 10/04/19 06:00 70 10/04/19 04:07 98.2 F 70 18 110/81 79 L 10/03/19 23:31 98.3 F 105 H 16 107/79 89 10/03/19 22:11 73 10/03/19 21:15 92 10/03/19 20:24 98.1 F 73 16 121/84 84 10/03/19 15:00 123 H 34 H 136/97 93 10/03/19 14:00 123 H 29 H 126/94 98 10/03/19 13:00 170 H 23 135/95 10/03/19 12:15 117 H 44 H 135/95 10/03/19 12:13 109 H 10/03/19 11:19 97.8 F 134 H 28 H 125/89 95 - Physical Examination General: No Apparent Distress HEENT: Positive: PERRL Neck: Positive: neck supple Cardiac: Positive: irregularly irregular Neuro: Positive: Grossly Intact Extremities: Present: +1 Edema - Labs and Meds Cardiac Enzymes 10/03/19 Range/Units 12:16 AST 22 (5-40) units/L Coagulation 10/03/19 Range/Units 12:16 PT 14.6 (12.2-14.9) Sec. INR 1.13 (0.87-1.13) APTT 34.8 (24.2-36.6) Sec. CBC 10/03/19 10/04/19 Range/Units 12:16 05:06 WBC 10.6 7.9 (4.5-11.0) K/mm3 RBC 2.77 L 2.69 L (3.65-5.03) M/mm3 Hgb 8.9 L 8.6 L (11.8-15.2) gm/dl Hct 25.6 L 25.3 L (35.5-45.6) % Plt Count 333 308 (140-440) K/mm3 Lymph # 2.3 1.7 (1.2-5.4) K/mm3 [place] # 1.0 H 0.7 (0.0-0.8) K/mm3 Eos # 0.1 0.0 (0.0-0.4) K/mm3 Baso # 0.1 0.0 (0.0-0.1) K/mm3 Comprehensive Metabolic Panel 10/03/19 10/03/19 10/03/19 Range/Units 12:16 12:16 19:24 Sodium 138 (137-145) mmol/L Potassium 2.4 L* 2.3 L* (3.6-5.0) mmol/L Chloride 91.7 L (98-107) mmol/L Carbon Dioxide 32 H (22-30) mmol/L BUN 4 L (9-20) mg/dL Creatinine 0.7 L (0.8-1.5) mg/dL Glucose 107 H (75-100) mg/dL Calcium 7.5 L (8.4-10.2) mg/dL Direct Bilirubin < 0.2 (0-0.2) mg/dL AST 22 (5-40) units/L ALT 8 (7-56) units/L Alkaline Phosphatase 77 (35-129) units/L Total Protein 7.3 (6.3-8.2) g/dL Albumin 3.2 L (3.9-5) g/dL 10/04/19 Range/Units 05:06 Sodium 139 (137-145) mmol/L Potassium 3.1 L D (3.6-5.0) mmol/L Chloride 92.1 L (98-107) mmol/L Carbon Dioxide 31 H (22-30) mmol/L BUN 5 L (9-20) mg/dL Creatinine 0.7 L (0.8-1.5) mg/dL Glucose 111 H (75-100) mg/dL Calcium 7.5 L (8.4-10.2) mg/dL Direct Bilirubin (0-0.2) mg/dL AST (5-40) units/L ALT (7-56) units/L Alkaline Phosphatase (35-129) units/L Total Protein (6.3-8.2) g/dL Albumin (3.9-5) g/dL
[2019-10-04] MEDS: atenoloL 25 MG TAB PO SCH (10:46)
[2019-10-04] MEDS: PANTOPRAZOLE 40 MG TAB PO SCH (10:46)
[2019-10-04] MEDS: POTASSIUM CHLORIDE ER 20 MEQ TAB PO SCH ×4 (10:46→22:30)
[2019-10-04] MEDS: FUROSEMIDE 40 MG/4 ML INJ IV SCH ×2 (10:47→21:51)
[2019-10-04] MEDS: ENOXAPARIN 80 MG/0.8 ML INJ SUB-Q SCH ×2 (10:47→22:28)
[2019-10-04] MEDS: dilTIAZem CD 180 MG CAP PO SCH (10:47)
--- NOTE | 2019-10-04 13:55 | Vascular Lab Report ---
DUPLEX DOPPLER LOWER EXTREMITY VEINS, BILATERAL INDICATION: Bilateral leg swelling.. TECHNIQUE: Duplex doppler imaging was performed through the veins of both lower extremities using venous ana brennon and other maneuvers. COMPARISON: None available. FINDINGS: Right Common femoral vein: Negative. Right Superficial femoral vein: Negative. Right Popliteal vein: Negative. Right Calf veins: Negative. Left Common femoral vein: Negative. Left Superficial femoral vein: Negative. Left Popliteal vein: Negative. Left Calf veins: Negative. Additional findings: There is no evidence of a popliteal cyst or other significant abnormality. IMPRESSION: No sonographic evidence for DVT in either lower extremity. Signer Name: Ranjit Hoover MD Signed: 10/04/2019 1:50 PM Workstation Name: [id number]
--- NOTE | 2019-10-04 15:01 | Cat Scan Report ---
CT angio chest INDICATION / CLINICAL INFORMATION: P.E. PROTOCOL!!! shortness of breath, elevated D-dimer. TECHNIQUE: Axial CT images were obtained after injection of Omnipaque 300, 100 cc IV injection. IV contrast usin g CTA protocol. 3 plane MIP / 3D reconstructions were produced. All CT scans at this location are per formed using CT dose reduction for ALARA by means of automated exposure control. COMPARISON: Chest x-ray earlier the same way. FINDINGS: Small basilar effusions left greater than right. Mild patchy infiltrate within the inferior aspect of the right upper lobe, the right middle lobe and the right lower lobe. Negative for mass or dense inf iltrate. Evaluation the mediastinum demonstrates a mildly prominent prevascular node measuring 1.2 cm. The eso phagus is mildly distended and contains fluid/debris. Cardiomegaly is moderate. Imaging of the upper abdomen demonstrates reflux into the IVC and hepatic veins. Negative for aneurysm, dissection or pulmonary embolus. IMPRESSION: 1. Right-sided pneumonia. 2. Cardiomegaly with pleural fluid and increased central venous pressure. 3. Mildly distended esophagus containing fluid/debris. Signer Name: Nikita Bashir MD Signed: 10/04/2019 2:57 PM Workstation Name: [id number]
--- NOTE | 2019-10-04 15:30 | Progress Note ---
Assessment and Plan Assessment and plan: Acute on chronic systolic CHF exacerbation Patient ran out of meds including lasix 1 week ago Admitted to Telemetry Lasix iv Beta blockers Consulted cardiology, Echo shows EF 15-20% Acute respiratory failure due to CHF exacerbation supplemental Oxygen Severe hypokalemia Replete iv, recheck in am Afib w RVR Treat with betablockers cardiology consulted, following Hyperthyroidism Continue Tapazole Full code status. History Interval history: Feels better Less SOB Hospitalist Physical - Physical exam Narrative exam: GEN: Not in acute distress, lying in bed HEENT: Normocephalic, atraumatic, Neck: supple, No JVD Lungs: Bilateral rales heart;S1 and S2 irreg, irreg, rapid no murmurs, rubs or gallop Abd:soft, non tender, non distended, normal bowel sounds, Ext: Bilateral edema, no clubbing, no cyanosis, Neuro: Awake,alert,oriented X3 , no focal signs, - Constitutional Vitals: Temp Pulse Resp BP Pulse Ox 98.7 F 77 20 144/75 96 10/04/19 11:29 10/04/19 11:29 10/04/19 11:29 10/04/19 11:29 10/04/19 11:29 HEART Score - HEART Score Troponin: Troponin T 0.016 ng/mL (0.00-0.029) 10/03/19 14:21 Results - Labs CBC & Chem 7: 10/04/19 05:06 10/05/19 07:01 Labs: Laboratory Last Values WBC 7.9 K/mm3 (4.5-11.0) 10/04/19 05:06 RBC 2.69 M/mm3 (3.65-5.03) L 10/04/19 05:06 Hgb 8.6 gm/dl (11.8-15.2) L 10/04/19 05:06 Hct 25.3 % (35.5-45.6) L 10/04/19 05:06 MCV 94 fl (84-94) 10/04/19 05:06 MCH 32 pg (28-32) 10/04/19 05:06 MCHC 34 % (32-34) 10/04/19 05:06 RDW 18.0 % (13.2-15.2) H 10/04/19 05:06 Plt Count 308 K/mm3 (140-440) 10/04/19 05:06 Lymph % (Auto) 21.8 % (13.4-35.0) 10/04/19 05:06 [place] % (Auto) 9.5 % (0.0-7.3) H 10/04/19 05:06 Eos % (Auto) 0.6 % (0.0-4.3) 10/04/19 05:06 Baso % (Auto) 0.6 % (0.0-1.8) 10/04/19 05:06 Lymph # 1.7 K/mm3 (1.2-5.4) 10/04/19 05:06 [place] # 0.7 K/mm3 (0.0-0.8) 10/04/19 05:06 Eos # 0.0 K/mm3 (0.0-0.4) 10/04/19 05:06 Baso # 0.0 K/mm3 (0.0-0.1) 10/04/19 05:06 Seg Neutrophils % 67.5 % (40.0-70.0) 10/04/19 05:06 Seg Neutrophils # 5.3 K/mm3 (1.8-7.7) 10/04/19 05:06 PT 14.6 Sec. (12.2-14.9) 10/03/19 12:16 INR 1.13 (0.87-1.13) 10/03/19 12:16 APTT 34.8 Sec. (24.2-36.6) 10/03/19 12:16 D-Dimer 1738.75 ng/mlDDU (0-234) H 10/03/19 14:21 Sodium 139 mmol/L (137-145) 10/04/19 05:06 Potassium 3.1 mmol/L (3.6-5.0) L D 10/04/19 05:06 Chloride 92.1 mmol/L (98-107) L 10/04/19 05:06 Carbon Dioxide 31 mmol/L (22-30) H 10/04/19 05:06 Anion Gap 19 mmol/L 10/04/19 05:06 BUN 5 mg/dL (9-20) L 10/04/19 05:06 Creatinine 0.7 mg/dL (0.8-1.5) L 10/04/19 05:06 Estimated GFR > 60 ml/min 10/04/19 05:06 BUN/Creatinine Ratio 7 % 10/04/19 05:06 Glucose 111 mg/dL (75-100) H 10/04/19 05:06 Calcium 7.5 mg/dL (8.4-10.2) L 10/04/19 05:06 Magnesium 2.10 mg/dL (1.7-2.3) 10/04/19 05:06 Total Bilirubin 1.00 mg/dL (0.1-1.2) 10/03/19 12:16 Direct Bilirubin < 0.2 mg/dL (0-0.2) 10/03/19 12:16 AST 22 units/L (5-40) 10/03/19 12:16 ALT 8 units/L (7-56) 10/03/19 12:16 Alkaline Phosphatase 77 units/L (35-129) 10/03/19 12:16 Troponin T 0.016 ng/mL (0.00-0.029) 10/03/19 14:21 NT-Pro-B Natriuret Pep 9538 pg/mL (0-900) H 10/03/19 12:16 Total Protein 7.3 g/dL (6.3-8.2) 10/03/19 12:16 Albumin 3.2 g/dL (3.9-5) L 10/03/19 12:16 Albumin/Globulin Ratio 0.8 % 10/03/19 12:16 TSH 2.130 mlU/mL (0.270-4.200) 10/03/19 14:21 Free T4 1.17 ng/dL (0.76-1.46) 10/03/19 14:21 - Diagnostic Impressions Diagnostic Impressions: Echocardiogram 10/03/19 18:03 Transthoracic Echocardiogram Indication: HF/AF BP: 117/83 HR: 102 Conclusions *Severe, 4-chamber dilated cardiomyopathy. *Global left ventricular systolic function is severely decreased. *The estimated ejection fraction is 15-20%. *There is moderate mitral regurgitation. *There is moderate tricuspid regurgitation. *There is evidence of mild pulmonary hypertension. *The right ventricular systolic pressure is calculated at 38 mmHg. *There is a minimial pericardial effusion. Findings Left Ventricle: The left ventricular chamber size is severely dilated. Mild concentric left ventricular hypertrophy is observed. Global left ventricular systolic function is severely decreased. The estimated ejection fraction is 15-20%. Left Atrium: The left atrium is severely dilated. Right Ventricle: The right ventricle is severely dilated. The right ventricular global systolic function is severely reduced. Right Atrium: The right atrial cavity size is severely dilated. Aortic Valve: The aortic valve is trileaflet. The aortic valve leaflets are mildly thickened. There is no evidence of aortic regurgitation. There is no evidence of aortic stenosis. Mitral Valve: The mitral valve leaflets are mildly thickened. There is moderate mitral regurgitation. There is no evidence of mitral stenosis. Tricuspid Valve: There is moderate tricuspid regurgitation. The right ventricular systolic pressure is calculated at 38 mmHg. There is evidence of mild pulmonary hypertension. Pulmonic Valve: There is mild pulmonic regurgitation. Pericardium: There is a minimial pericardial effusion. Aorta: There is no dilatation of the ascending aorta. There is no dilatation of the aortic root. Venous: The inferior vena cava is dilated. Measurements Chambers 2D Name Value Normal Range IVSd (2D) 0.76 cm (0.6 - 1.1) LVPWd (2D) 1.08 cm (0.6 - 1.1) LVIDd (2D) 5.92 cm (3.7 - 5.6) LVIDs (2D) 5.13 cm (2 - 3.8) LV FS (2D) 13.4 % - EF Teichholz (2D) 28.21 % - Ao root diameter (2D) 3.02 cm (2 - 3.7) Volumes/Mass Name Value Normal Range LA ESV SP 4CH (A/L) 103.95 ml - LA ESV SP 2CH (A/L) 82.17 ml - LA ESV BP (A/L) 104.83 ml - LA ESV SP 4CH (MOD) 93.58 ml - LA ESV SP 2CH (MOD) 77.37 ml - LV EDV SP 4CH (MOD) 149.13 ml - LV ESV SP 4CH (MOD) 99.97 ml - EF SP 4CH (MOD) 32.96 % - LV EDV SP 2CH (MOD) 159.1 ml - LV ESV SP 2CH (MOD) 123.47 ml - EF SP 2CH (MOD) 22.4 % - LV EDV BP 160.74 ml - LV ESV BP 117.52 ml - BP EF (MOD) 26.89 % - Diastolic/Systolic Function Name Value Normal Range MV E-wave Vmax 1.14 m/sec - MV deceleration time 133.32 msec - MV A-wave Vmax 0.39 m/sec - MV E:A ratio 2.94 ratio - Aortic Valve Name Value Normal Range AV Vmax 0.84 m/sec - AV VTI 10.58 cm - AV peak gradient 2.8 mmHg - AV mean gradient 1.47 mmHg - LVOT diameter 2.22 cm - LVOT Vmax 0.67 m/sec - LVOT VTI 10.24 cm - LVOT peak gradient 1.81 mmHg - LVOT mean gradient 0.78 mmHg - SV LVOT 39.43 ml - LINDY (continuity Vmax) 3.1 cm2 - LINDY (continuity VTI) 3.73 cm2 - Ascending Ao 2.92 cm - Mitral Valve Name Value Normal Range MV PHT 36.91 msec - MR Vmax 4.3 m/sec - MVA (PHT) 5.96 cm2 - Tricuspid Valve Name Value Normal Range TR Vmax 2.77 m/sec - TR peak gradient 30.63 mmHg - RVSP 38 mmHg - IVC diameter 2.36 cm (1.2 - 2.3) Pulmonic Valve/Qp:Qs Name Value Normal Range PV Vmax 0.54 m/sec - PV VTI 7.58 cm - PV peak gradient 1.17 mmHg - PV mean gradient 0.5 mmHg - NE end-diastolic Vmax 1.65 m/sec - RVOT Vmax 0.5 m/sec - RVOT VTI 8.54 cm - RVOT peak gradient 0.98 mmHg - [place]/IV: Voiding Method Urinal IV Catheter Type [Left Upper INT / Saline Lock arm] IV Catheter Type [Left INT / Saline Lock External Jugular] Active Medications - Current Medications Current Medications: Generic Name Dose Route Start Last Admin Trade Name Freq PRN Reason Stop Dose Admin Acetaminophen 650 mg 10/03/19 15:27 Tylenol PO Q4H PRN Pain MILD(1-3)/Fever >100.5/TRIPATHI Acetaminophen/Hydrocodone Bitart 1 each 10/03/19 15:30 [place] 5/325 PO Q6HR PRN PAIN Albuterol 2.5 mg 10/03/19 15:27 Proventil IH Q4HRT PRN Shortness Of Breath Atenolol 25 mg 10/03/19 16:00 10/04/19 10:46 Tenormin PO 25 mg DAILY AFSHAN Administration Diltiazem HCl 180 mg 10/03/19 16:00 10/04/19 10:47 Cardizem Cd PO Not Given QDAY AFSHAN Enoxaparin Sodium 70 mg 10/04/19 10:00 10/04/19 10:47 Enoxaparin SUB-Q 70 mg Q12HR AFSHAN Administration Furosemide 40 mg 10/04/19 08:00 10/04/19 10:47 Lasix IV 40 mg Q12H AFSHAN Administration Methimazole 7.5 mg 10/03/19 16:00 10/04/19 04:07 Tapazole PO 7.5 mg Q12H AFSHAN Administration Metoprolol Tartrate 5 mg 10/03/19 18:02 Metoprolol IV Q4HR PRN HR >130 Ondansetron HCl 4 mg 10/03/19 15:27 Zofran IV Q8H PRN Nausea And Vomiting Pantoprazole Sodium 40 mg 10/04/19 10:00 10/04/19 10:46 Protonix PO 40 mg DAILY AFSHAN Administration Sodium Chloride 10 ml 10/03/19 22:00 10/03/19 21:13 Sodium Chloride Flush Syringe 10 Ml IV 10 ml BID AFSHAN Administration Sodium Chloride 10 ml 10/03/19 15:27 Sodium Chloride Flush Syringe 10 Ml IV PRN PRN LINE FLUSH
[2019-10-04] MEDS ORDERED: POTASSIUM CHLORIDE ER 20 MEQ TAB PO SCH (18:00)
[2019-10-04 20:54] LABS: BUN/Creatinine Ratio 9; Blood Urea Nitrogen 6 mg/dL (9-20); Hemolysis Index 2
[2019-10-04] MEDS ORDERED: POTASSIUM CHLORIDE ER 20 MEQ TAB PO ONE (22:00)
[2019-10-04] MEDS: POTASSIUM CHLORIDE 10 MEQ 10 MEQ/100 ML BAG IV SCH (22:29)
[2019-10-05] MEDS: POTASSIUM CHLORIDE 10 MEQ 10 MEQ/100 ML BAG IV SCH (00:05)
[2019-10-05] MEDS: POTASSIUM CHLORIDE ER 20 MEQ TAB PO SCH ×2 (00:06→03:25)
[2019-10-05] MEDS: methIMAzole 5 MG TAB PO SCH ×2 (03:24→17:27)
[2019-10-05 07:35] LABS: BUN/Creatinine Ratio 9; Blood Urea Nitrogen 7 mg/dL (9-20); Calcium 8.3 mg/dL (8.4-10.2); Hemolysis Index 2
[2019-10-05] MEDS: FUROSEMIDE 40 MG/4 ML INJ IV SCH (08:20)
[2019-10-05] MEDS: PANTOPRAZOLE 40 MG TAB PO SCH (09:17)
[2019-10-05] MEDS: atenoloL 25 MG TAB PO SCH (09:17)
[2019-10-05] MEDS: dilTIAZem CD 180 MG CAP PO SCH (09:20)
[2019-10-05] MEDS: ENOXAPARIN 80 MG/0.8 ML INJ SUB-Q SCH (09:21)
--- NOTE | 2019-10-05 11:16 | Progress Note ---
Assessment and Plan - Patient Problems (1) Congestive heart failure Current Visit: No Status: Acute Qualifiers: Qualified Code(s): I50.9 - Heart failure, unspecified Plan to address problem: Echocardiogram showed a four chamber dilated cardiomyopathy with severe systolic dysfunction, ejection fraction 15-20%. Advised sodium/fluid restriction. Medical therapy for chronic systolic heart failure. (2) Atrial fibrillation with RVR Current Visit: No Status: Acute Plan to address problem: Atrial fibrillation, chronic rate control strategy. on diltiazem and atenolol at low doses. patient states that his long-term oral anticoagulation was discontinued a year ago due to nosebleeds. on this presentation pt noted a hematocrit of 25, of uncertain chronicity. We will initiate low dose Eliquis for CVA prophylaxis. Monitor labs closely. Subjective Date of service: 10/05/19 Interval history: Patient reports shortness of breath on exertion. Rapid afib on telemetry. Objective Vital Signs Temp Pulse Resp BP Pulse Ox 10/05/19 09:17 134 H 107/85 10/05/19 08:18 133 H 92 10/05/19 08:11 97.3 F L 17 107/85 10/05/19 06:00 126 H 10/05/19 04:58 150 H 113/63 10/05/19 03:36 97.3 F L 129 H 20 113/63 85 10/04/19 23:03 97.2 F L 60 16 105/79 85 10/04/19 23:00 26 H 96 10/04/19 22:00 60 10/04/19 21:22 93 10/04/19 19:16 98.2 F 112 H 16 109/71 90 10/04/19 15:44 98.7 F 96 H 20 109/75 93 10/04/19 11:29 98.7 F 77 20 144/75 96 10/04/19 11:17 95 - Physical Examination General: No Apparent Distress HEENT: Positive: PERRL Neck: Positive: neck supple Cardiac: Positive: irregularly irregular Lungs: Positive: Decreased Breath Sounds Neuro: Positive: Grossly Intact Extremities: Present: +1 Edema - Labs and Meds Comprehensive Metabolic Panel 10/04/19 10/04/19 10/05/19 Range/Units 15:59 20:23 07:01 Sodium 138 139 (137-145) mmol/L Potassium 3.0 L 3.0 L 3.7 D (3.6-5.0) mmol/L Chloride 91.7 L 96.3 L (98-107) mmol/L Carbon Dioxide 31 H 29 (22-30) mmol/L BUN 6 L 7 L (9-20) mg/dL Creatinine 0.7 L 0.8 (0.8-1.5) mg/dL Glucose 133 H 112 H (75-100) mg/dL Calcium 8.0 L 8.3 L (8.4-10.2) mg/dL
[2019-10-05] MEDS: SPIRONOLACTONE 25 MG TAB PO SCH (13:14)
[2019-10-05] MEDS: APIXABAN 2.5 MG TAB PO SCH ×2 (13:14→21:40)
--- NOTE | 2019-10-05 14:13 | Progress Note ---
Assessment and Plan Assessment and plan: Acute on chronic systolic CHF exacerbation Patient ran out of meds including lasix 1 week ago Admitted to Telemetry Lasix iv Contr Lasix, Cont Metoprolol Cont Aldactone Consulted cardiology, Echo shows EF 15-20% Acute respiratory failure due to CHF exacerbation supplemental Oxygen Severe hypokalemia Replete iv, recheck in am Afib w RVR Treat with betablockers cardiology consulted, following Eliquis added by Cardiology Hyperthyroidism Continue Tapazole Full code status. 10/05/2019 Patient with acute respiratory failure due to acute on chronic re on chronic CHF. Also has rapid afib. Eliquis added by Cardiology today. Hopefully dc home in 1-2 days. History Interval history: Feels better Less SOB Leg still swollen palpitation Hospitalist Physical - Physical exam Narrative exam: GEN: Not in acute distress, lying in bed HEENT: Normocephalic, atraumatic, Neck: supple, No JVD Lungs: Bilateral rales heart;S1 and S2 irreg, irreg, rapid no murmurs, rubs or gallop Abd:soft, non tender, non distended, normal bowel sounds, Ext: Bilateral edema, no clubbing, no cyanosis, Neuro: Awake,alert,oriented X3 , no focal signs, - Constitutional Vitals: Temp Pulse Resp BP Pulse Ox 97.3 F L 59 L 17 99/73 90 10/05/19 11:37 10/05/19 11:37 10/05/19 11:37 10/05/19 11:37 10/05/19 11:37 HEART Score - HEART Score Troponin: Troponin T 0.016 ng/mL (0.00-0.029) 10/03/19 14:21 Results - Labs CBC & Chem 7: 10/04/19 05:06 10/05/19 07:01 Labs: Laboratory Last Values WBC 7.9 K/mm3 (4.5-11.0) 10/04/19 05:06 RBC 2.69 M/mm3 (3.65-5.03) L 10/04/19 05:06 Hgb 8.6 gm/dl (11.8-15.2) L 10/04/19 05:06 Hct 25.3 % (35.5-45.6) L 10/04/19 05:06 MCV 94 fl (84-94) 10/04/19 05:06 MCH 32 pg (28-32) 10/04/19 05:06 MCHC 34 % (32-34) 10/04/19 05:06 RDW 18.0 % (13.2-15.2) H 10/04/19 05:06 Plt Count 308 K/mm3 (140-440) 10/04/19 05:06 Lymph % (Auto) 21.8 % (13.4-35.0) 10/04/19 05:06 [place] % (Auto) 9.5 % (0.0-7.3) H 10/04/19 05:06 Eos % (Auto) 0.6 % (0.0-4.3) 10/04/19 05:06 Baso % (Auto) 0.6 % (0.0-1.8) 10/04/19 05:06 Lymph # 1.7 K/mm3 (1.2-5.4) 10/04/19 05:06 [place] # 0.7 K/mm3 (0.0-0.8) 10/04/19 05:06 Eos # 0.0 K/mm3 (0.0-0.4) 10/04/19 05:06 Baso # 0.0 K/mm3 (0.0-0.1) 10/04/19 05:06 Seg Neutrophils % 67.5 % (40.0-70.0) 10/04/19 05:06 Seg Neutrophils # 5.3 K/mm3 (1.8-7.7) 10/04/19 05:06 PT 14.6 Sec. (12.2-14.9) 10/03/19 12:16 INR 1.13 (0.87-1.13) 10/03/19 12:16 APTT 34.8 Sec. (24.2-36.6) 10/03/19 12:16 D-Dimer 1738.75 ng/mlDDU (0-234) H 10/03/19 14:21 Sodium 139 mmol/L (137-145) 10/05/19 07:01 Potassium 3.7 mmol/L (3.6-5.0) D 10/05/19 07:01 Chloride 96.3 mmol/L (98-107) L 10/05/19 07:01 Carbon Dioxide 29 mmol/L (22-30) 10/05/19 07:01 Anion Gap 17 mmol/L 10/05/19 07:01 BUN 7 mg/dL (9-20) L 10/05/19 07:01 Creatinine 0.8 mg/dL (0.8-1.5) 10/05/19 07:01 Estimated GFR > 60 ml/min 10/05/19 07:01 BUN/Creatinine Ratio 9 % 10/05/19 07:01 Glucose 112 mg/dL (75-100) H 10/05/19 07:01 Calcium 8.3 mg/dL (8.4-10.2) L 10/05/19 07:01 Magnesium 2.10 mg/dL (1.7-2.3) 10/04/19 05:06 Total Bilirubin 1.00 mg/dL (0.1-1.2) 10/03/19 12:16 Direct Bilirubin < 0.2 mg/dL (0-0.2) 10/03/19 12:16 AST 22 units/L (5-40) 10/03/19 12:16 ALT 8 units/L (7-56) 10/03/19 12:16 Alkaline Phosphatase 77 units/L (35-129) 10/03/19 12:16 Troponin T 0.016 ng/mL (0.00-0.029) 10/03/19 14:21 NT-Pro-B Natriuret Pep 9538 pg/mL (0-900) H 10/03/19 12:16 Total Protein 7.3 g/dL (6.3-8.2) 10/03/19 12:16 Albumin 3.2 g/dL (3.9-5) L 10/03/19 12:16 Albumin/Globulin Ratio 0.8 % 10/03/19 12:16 TSH 2.130 mlU/mL (0.270-4.200) 10/03/19 14:21 Free T4 1.17 ng/dL (0.76-1.46) 10/03/19 14:21 Microbiology: Microbiology 10/04/19 15:53 Peripheral/Venous Blood Culture - Preliminary Culture in Progress 10/04/19 16:00 Peripheral/Venous Blood Culture - Preliminary Culture in Progress - Diagnostic Impressions Diagnostic Impressions: Echocardiogram 10/03/19 18:03 Transthoracic Echocardiogram Indication: HF/AF BP: 117/83 HR: 102 Conclusions *Severe, 4-chamber dilated cardiomyopathy. *Global left ventricular systolic function is severely decreased. *The estimated ejection fraction is 15-20%. *There is moderate mitral regurgitation. *There is moderate tricuspid regurgitation. *There is evidence of mild pulmonary hypertension. *The right ventricular systolic pressure is calculated at 38 mmHg. *There is a minimial pericardial effusion. Findings Left Ventricle: The left ventricular chamber size is severely dilated. Mild concentric left ventricular hypertrophy is observed. Global left ventricular systolic function is severely decreased. The estimated ejection fraction is 15-20%. Left Atrium: The left atrium is severely dilated. Right Ventricle: The right ventricle is severely dilated. The right ventricular global systolic function is severely reduced. Right Atrium: The right atrial cavity size is severely dilated. Aortic Valve: The aortic valve is trileaflet. The aortic valve leaflets are mildly thickened. There is no evidence of aortic regurgitation. There is no evidence of aortic stenosis. Mitral Valve: The mitral valve leaflets are mildly thickened. There is moderate mitral regurgitation. There is no evidence of mitral stenosis. Tricuspid Valve: There is moderate tricuspid regurgitation. The right ventricular systolic pressure is calculated at 38 mmHg. There is evidence of mild pulmonary hypertension. Pulmonic Valve: There is mild pulmonic regurgitation. Pericardium: There is a minimial pericardial effusion. Aorta: There is no dilatation of the ascending aorta. There is no dilatation of the aortic root. Venous: The inferior vena cava is dilated. Measurements Chambers 2D Name Value Normal Range IVSd (2D) 0.76 cm (0.6 - 1.1) LVPWd (2D) 1.08 cm (0.6 - 1.1) LVIDd (2D) 5.92 cm (3.7 - 5.6) LVIDs (2D) 5.13 cm (2 - 3.8) LV FS (2D) 13.4 % - EF Teichholz (2D) 28.21 % - Ao root diameter (2D) 3.02 cm (2 - 3.7) Volumes/Mass Name Value Normal Range LA ESV SP 4CH (A/L) 103.95 ml - LA ESV SP 2CH (A/L) 82.17 ml - LA ESV BP (A/L) 104.83 ml - LA ESV SP 4CH (MOD) 93.58 ml - LA ESV SP 2CH (MOD) 77.37 ml - LV EDV SP 4CH (MOD) 149.13 ml - LV ESV SP 4CH (MOD) 99.97 ml - EF SP 4CH (MOD) 32.96 % - LV EDV SP 2CH (MOD) 159.1 ml - LV ESV SP 2CH (MOD) 123.47 ml - EF SP 2CH (MOD) 22.4 % - LV EDV BP 160.74 ml - LV ESV BP 117.52 ml - BP EF (MOD) 26.89 % - Diastolic/Systolic Function Name Value Normal Range MV E-wave Vmax 1.14 m/sec - MV deceleration time 133.32 msec - MV A-wave Vmax 0.39 m/sec - MV E:A ratio 2.94 ratio - Aortic Valve Name Value Normal Range AV Vmax 0.84 m/sec - AV VTI 10.58 cm - AV peak gradient 2.8 mmHg - AV mean gradient 1.47 mmHg - LVOT diameter 2.22 cm - LVOT Vmax 0.67 m/sec - LVOT VTI 10.24 cm - LVOT peak gradient 1.81 mmHg - LVOT mean gradient 0.78 mmHg - SV LVOT 39.43 ml - LINDY (continuity Vmax) 3.1 cm2 - LINDY (continuity VTI) 3.73 cm2 - Ascending Ao 2.92 cm - Mitral Valve Name Value Normal Range MV PHT 36.91 msec - MR Vmax 4.3 m/sec - MVA (PHT) 5.96 cm2 - Tricuspid Valve Name Value Normal Range TR Vmax 2.77 m/sec - TR peak gradient 30.63 mmHg - RVSP 38 mmHg - IVC diameter 2.36 cm (1.2 - 2.3) Pulmonic Valve/Qp:Qs Name Value Normal Range PV Vmax 0.54 m/sec - PV VTI 7.58 cm - PV peak gradient 1.17 mmHg - PV mean gradient 0.5 mmHg - TN end-diastolic Vmax 1.65 m/sec - RVOT Vmax 0.5 m/sec - RVOT VTI 8.54 cm - RVOT peak gradient 0.98 mmHg - Mccullough/IV: Voiding Method Urinal IV Catheter Type [Left Upper INT / Saline Lock arm] IV Catheter Type [Left INT / Saline Lock External Jugular] Active Medications - Current Medications Current Medications: Generic Name Dose Route Start Last Admin Trade Name Freq PRN Reason Stop Dose Admin Acetaminophen 650 mg 10/03/19 15:27 Tylenol PO Q4H PRN Pain MILD(1-3)/Fever >100.5/TRIPATHI Acetaminophen/Hydrocodone Bitart 1 each 10/03/19 15:30 [place] 5/325 PO Q6HR PRN PAIN Albuterol 2.5 mg 10/03/19 15:27 Proventil IH Q4HRT PRN Shortness Of Breath Apixaban 2.5 mg 10/05/19 12:00 10/05/19 13:14 Eliquis PO 2.5 mg Q12HR AFSHAN Administration Protocol Diltiazem HCl 180 mg 10/03/19 16:00 10/05/19 09:20 Cardizem Cd PO 180 mg QDAY AFSHAN Administration Furosemide 40 mg 10/04/19 08:00 10/05/19 08:20 Lasix IV 40 mg Q12H AFSHAN Administration Methimazole 7.5 mg 10/03/19 16:00 10/05/19 03:24 Tapazole PO 7.5 mg Q12H AFSHAN Administration Metoprolol Tartrate 5 mg 10/03/19 18:02 10/05/19 04:58 Metoprolol IV 5 mg Q4HR PRN Administration HR >130 Metoprolol Tartrate 50 mg 10/05/19 12:00 Metoprolol PO BID AFSHAN Ondansetron HCl 4 mg 10/03/19 15:27 10/05/19 08:21 Zofran IV 4 mg Q8H PRN Administration Nausea And Vomiting Pantoprazole Sodium 40 mg 10/04/19 10:00 10/05/19 09:17 Protonix PO 40 mg DAILY AFSHAN Administration Sodium Chloride 10 ml 10/03/19 22:00 10/05/19 09:21 Sodium Chloride Flush Syringe 10 Ml IV 10 ml BID AFSHAN Administration Sodium Chloride 10 ml 10/03/19 15:27 10/05/19 05:00 Sodium Chloride Flush Syringe 10 Ml IV 10 ml PRN PRN Administration LINE FLUSH Spironolactone 25 mg 10/05/19 12:00 10/05/19 13:14 Aldactone PO 25 mg QDAY AFSHAN Administration
[2019-10-05] MEDS: METOPROLOL TARTRATE 50 MG TAB PO SCH ×2 (17:28→22:00)
[2019-10-06] MEDS: methIMAzole 5 MG TAB PO SCH ×2 (04:55→18:29)
[2019-10-06] MEDS: FUROSEMIDE 40 MG/4 ML INJ IV SCH ×3 (05:00→18:29)
--- NOTE | 2019-10-06 08:53 | Progress Note ---
Assessment and Plan Assessment and plan: Acute on chronic systolic CHF exacerbation Patient ran out of meds including lasix 1 week ago Admitted to Telemetry Lasix iv Contr Lasix, Cont Metoprolol Cont Aldactone Consulted cardiology, Echo shows EF 15-20% Acute respiratory failure due to CHF exacerbation supplemental Oxygen Severe hypokalemia Replete iv, recheck in am Afib w RVR Treat with betablockers cardiology consulted, following Eliquis added by Cardiology Hyperthyroidism Continue Tapazole Full code status. 10/05/2019 Patient with acute respiratory failure due to acute on chronic re on chronic CHF. Also has rapid afib. Eliquis added by Cardiology today. Hopefully dc home in 1-2 days. 10/06/19 Patient with acute respiratory failure due to acute on chronic re on chronic CHF. Also has rapid afib. Eliquis added by Cardiology yesterday. he still gets shortness of breath, worse on exertion even on Oxygen Not ready for discharge. History Interval history: Feels slightly better Less SOB, but still shortness of breath on exertion Leg still swollen Hospitalist Physical - Physical exam Narrative exam: GEN: Not in acute distress, lying in bed HEENT: Normocephalic, atraumatic, Neck: supple, No JVD Lungs: Bilateral rales heart;S1 and S2 irreg, irreg, rapid no murmurs, rubs or gallop Abd:soft, non tender, non distended, normal bowel sounds, Ext: Bilateral edema, no clubbing, no cyanosis, Neuro: Awake,alert,oriented X3 , no focal signs, - Constitutional Vitals: Temp Pulse Resp BP Pulse Ox 98.2 F 72 18 128/82 92 10/06/19 08:02 10/06/19 08:02 10/06/19 08:02 10/06/19 08:02 10/06/19 08:02 HEART Score - HEART Score Troponin: Troponin T 0.016 ng/mL (0.00-0.029) 10/03/19 14:21 Results - Labs CBC & Chem 7: 10/04/19 05:06 10/05/19 15:49 Labs: Laboratory Last Values WBC 7.9 K/mm3 (4.5-11.0) 10/04/19 05:06 RBC 2.69 M/mm3 (3.65-5.03) L 10/04/19 05:06 Hgb 8.6 gm/dl (11.8-15.2) L 10/04/19 05:06 Hct 25.3 % (35.5-45.6) L 10/04/19 05:06 MCV 94 fl (84-94) 10/04/19 05:06 MCH 32 pg (28-32) 10/04/19 05:06 MCHC 34 % (32-34) 10/04/19 05:06 RDW 18.0 % (13.2-15.2) H 10/04/19 05:06 Plt Count 308 K/mm3 (140-440) 10/04/19 05:06 Lymph % (Auto) 21.8 % (13.4-35.0) 10/04/19 05:06 [place] % (Auto) 9.5 % (0.0-7.3) H 10/04/19 05:06 Eos % (Auto) 0.6 % (0.0-4.3) 10/04/19 05:06 Baso % (Auto) 0.6 % (0.0-1.8) 10/04/19 05:06 Lymph # 1.7 K/mm3 (1.2-5.4) 10/04/19 05:06 [place] # 0.7 K/mm3 (0.0-0.8) 10/04/19 05:06 Eos # 0.0 K/mm3 (0.0-0.4) 10/04/19 05:06 Baso # 0.0 K/mm3 (0.0-0.1) 10/04/19 05:06 Seg Neutrophils % 67.5 % (40.0-70.0) 10/04/19 05:06 Seg Neutrophils # 5.3 K/mm3 (1.8-7.7) 10/04/19 05:06 PT 14.6 Sec. (12.2-14.9) 10/03/19 12:16 INR 1.13 (0.87-1.13) 10/03/19 12:16 APTT 34.8 Sec. (24.2-36.6) 10/03/19 12:16 D-Dimer 1738.75 ng/mlDDU (0-234) H 10/03/19 14:21 Sodium 139 mmol/L (137-145) 10/05/19 07:01 Potassium 3.7 mmol/L (3.6-5.0) 10/05/19 15:49 Chloride 96.3 mmol/L (98-107) L 10/05/19 07:01 Carbon Dioxide 29 mmol/L (22-30) 10/05/19 07:01 Anion Gap 17 mmol/L 10/05/19 07:01 BUN 7 mg/dL (9-20) L 10/05/19 07:01 Creatinine 0.8 mg/dL (0.8-1.5) 10/05/19 07:01 Estimated GFR > 60 ml/min 10/05/19 07:01 BUN/Creatinine Ratio 9 % 10/05/19 07:01 Glucose 112 mg/dL (75-100) H 10/05/19 07:01 Calcium 8.3 mg/dL (8.4-10.2) L 10/05/19 07:01 Magnesium 2.10 mg/dL (1.7-2.3) 10/04/19 05:06 Total Bilirubin 1.00 mg/dL (0.1-1.2) 10/03/19 12:16 Direct Bilirubin < 0.2 mg/dL (0-0.2) 10/03/19 12:16 AST 22 units/L (5-40) 10/03/19 12:16 ALT 8 units/L (7-56) 10/03/19 12:16 Alkaline Phosphatase 77 units/L (35-129) 10/03/19 12:16 Troponin T 0.016 ng/mL (0.00-0.029) 10/03/19 14:21 NT-Pro-B Natriuret Pep 9538 pg/mL (0-900) H 10/03/19 12:16 Total Protein 7.3 g/dL (6.3-8.2) 10/03/19 12:16 Albumin 3.2 g/dL (3.9-5) L 10/03/19 12:16 Albumin/Globulin Ratio 0.8 % 10/03/19 12:16 TSH 2.130 mlU/mL (0.270-4.200) 10/03/19 14:21 Free T4 1.17 ng/dL (0.76-1.46) 10/03/19 14:21 Microbiology: Microbiology 10/04/19 16:00 Peripheral/Venous Blood Culture - Preliminary NO GROWTH AFTER 24 HOURS 10/04/19 15:53 Peripheral/Venous Blood Culture - Preliminary NO GROWTH AFTER 24 HOURS - Diagnostic Impressions Diagnostic Impressions: Echocardiogram 10/03/19 18:03 Transthoracic Echocardiogram Indication: HF/AF BP: 117/83 HR: 102 Conclusions *Severe, 4-chamber dilated cardiomyopathy. *Global left ventricular systolic function is severely decreased. *The estimated ejection fraction is 15-20%. *There is moderate mitral regurgitation. *There is moderate tricuspid regurgitation. *There is evidence of mild pulmonary hypertension. *The right ventricular systolic pressure is calculated at 38 mmHg. *There is a minimial pericardial effusion. Findings Left Ventricle: The left ventricular chamber size is severely dilated. Mild concentric left ventricular hypertrophy is observed. Global left ventricular systolic function is severely decreased. The estimated ejection fraction is 15-20%. Left Atrium: The left atrium is severely dilated. Right Ventricle: The right ventricle is severely dilated. The right ventricular global systolic function is severely reduced. Right Atrium: The right atrial cavity size is severely dilated. Aortic Valve: The aortic valve is trileaflet. The aortic valve leaflets are mildly thickened. There is no evidence of aortic regurgitation. There is no evidence of aortic stenosis. Mitral Valve: The mitral valve leaflets are mildly thickened. There is moderate mitral regurgitation. There is no evidence of mitral stenosis. Tricuspid Valve: There is moderate tricuspid regurgitation. The right ventricular systolic pressure is calculated at 38 mmHg. There is evidence of mild pulmonary hypertension. Pulmonic Valve: There is mild pulmonic regurgitation. Pericardium: There is a minimial pericardial effusion. Aorta: There is no dilatation of the ascending aorta. There is no dilatation of the aortic root. Venous: The inferior vena cava is dilated. Measurements Chambers 2D Name Value Normal Range IVSd (2D) 0.76 cm (0.6 - 1.1) LVPWd (2D) 1.08 cm (0.6 - 1.1) LVIDd (2D) 5.92 cm (3.7 - 5.6) LVIDs (2D) 5.13 cm (2 - 3.8) LV FS (2D) 13.4 % - EF Teichholz (2D) 28.21 % - Ao root diameter (2D) 3.02 cm (2 - 3.7) Volumes/Mass Name Value Normal Range LA ESV SP 4CH (A/L) 103.95 ml - LA ESV SP 2CH (A/L) 82.17 ml - LA ESV BP (A/L) 104.83 ml - LA ESV SP 4CH (MOD) 93.58 ml - LA ESV SP 2CH (MOD) 77.37 ml - LV EDV SP 4CH (MOD) 149.13 ml - LV ESV SP 4CH (MOD) 99.97 ml - EF SP 4CH (MOD) 32.96 % - LV EDV SP 2CH (MOD) 159.1 ml - LV ESV SP 2CH (MOD) 123.47 ml - EF SP 2CH (MOD) 22.4 % - LV EDV BP 160.74 ml - LV ESV BP 117.52 ml - BP EF (MOD) 26.89 % - Diastolic/Systolic Function Name Value Normal Range MV E-wave Vmax 1.14 m/sec - MV deceleration time 133.32 msec - MV A-wave Vmax 0.39 m/sec - MV E:A ratio 2.94 ratio - Aortic Valve Name Value Normal Range AV Vmax 0.84 m/sec - AV VTI 10.58 cm - AV peak gradient 2.8 mmHg - AV mean gradient 1.47 mmHg - LVOT diameter 2.22 cm - LVOT Vmax 0.67 m/sec - LVOT VTI 10.24 cm - LVOT peak gradient 1.81 mmHg - LVOT mean gradient 0.78 mmHg - SV LVOT 39.43 ml - LINDY (continuity Vmax) 3.1 cm2 - LINDY (continuity VTI) 3.73 cm2 - Ascending Ao 2.92 cm - Mitral Valve Name Value Normal Range MV PHT 36.91 msec - MR Vmax 4.3 m/sec - MVA (PHT) 5.96 cm2 - Tricuspid Valve Name Value Normal Range TR Vmax 2.77 m/sec - TR peak gradient 30.63 mmHg - RVSP 38 mmHg - IVC diameter 2.36 cm (1.2 - 2.3) Pulmonic Valve/Qp:Qs Name Value Normal Range PV Vmax 0.54 m/sec - PV VTI 7.58 cm - PV peak gradient 1.17 mmHg - PV mean gradient 0.5 mmHg - MI end-diastolic Vmax 1.65 m/sec - RVOT Vmax 0.5 m/sec - RVOT VTI 8.54 cm - RVOT peak gradient 0.98 mmHg - Mccullough/IV: Voiding Method Toilet IV Catheter Type [Left Upper INT / Saline Lock arm] IV Catheter Type [Left INT / Saline Lock External Jugular] Active Medications - Current Medications Current Medications: Generic Name Dose Route Start Last Admin Trade Name Freq PRN Reason Stop Dose Admin Acetaminophen 650 mg 10/03/19 15:27 Tylenol PO Q4H PRN Pain MILD(1-3)/Fever >100.5/TRIPATHI Acetaminophen/Hydrocodone Bitart 1 each 10/03/19 15:30 [place] 5/325 PO Q6HR PRN PAIN Albuterol 2.5 mg 10/03/19 15:27 Proventil IH Q4HRT PRN Shortness Of Breath Apixaban 2.5 mg 10/05/19 12:00 10/05/19 21:40 Eliquis PO 2.5 mg Q12HR AFSHAN Administration Protocol Diltiazem HCl 180 mg 10/03/19 16:00 10/05/19 09:20 Cardizem Cd PO 180 mg QDAY AFSHAN Administration Furosemide 40 mg 10/06/19 06:00 10/06/19 05:00 Lasix IV 40 mg Q12H AFSHAN Administration Methimazole 7.5 mg 10/03/19 16:00 10/06/19 04:55 Tapazole PO 7.5 mg Q12H AFSHAN Administration Metoprolol Tartrate 5 mg 10/03/19 18:02 10/05/19 04:58 Metoprolol IV 5 mg Q4HR PRN Administration HR >130 Metoprolol Tartrate 50 mg 10/05/19 12:00 10/05/19 22:00 Metoprolol PO Not Given BID AFSHAN Ondansetron HCl 4 mg 10/03/19 15:27 10/05/19 08:21 Zofran IV 4 mg Q8H PRN Administration Nausea And Vomiting Pantoprazole Sodium 40 mg 10/04/19 10:00 10/05/19 09:17 Protonix PO 40 mg DAILY AFSHAN Administration Sodium Chloride 10 ml 10/03/19 22:00 10/05/19 21:41 Sodium Chloride Flush Syringe 10 Ml IV 10 ml BID AFSHAN Administration Sodium Chloride 10 ml 10/03/19 15:27 10/05/19 05:00 Sodium Chloride Flush Syringe 10 Ml IV 10 ml PRN PRN Administration LINE FLUSH Spironolactone 25 mg 10/05/19 12:00 10/05/19 13:14 Aldactone PO 25 mg QDAY AFSHAN Administration
[2019-10-06] MEDS: APIXABAN 2.5 MG TAB PO SCH ×2 (09:56→21:44)
[2019-10-06] MEDS: METOPROLOL TARTRATE 50 MG TAB PO SCH ×2 (09:56→21:44)
[2019-10-06] MEDS: PANTOPRAZOLE 40 MG TAB PO SCH (09:56)
[2019-10-06] MEDS: dilTIAZem CD 180 MG CAP PO SCH (09:57)
[2019-10-06] MEDS: SPIRONOLACTONE 25 MG TAB PO SCH (09:57)
--- NOTE | 2019-10-06 11:04 | Progress Note ---
Assessment and Plan - Patient Problems (1) Congestive heart failure Current Visit: No Status: Acute Qualifiers: Qualified Code(s): I50.9 - Heart failure, unspecified Plan to address problem: Echocardiogram showed a four chamber dilated cardiomyopathy with severe systolic dysfunction, ejection fraction 15-20%. Advised sodium/fluid restriction. Continue medical therapy for chronic systolic heart failure. (2) Atrial fibrillation with RVR Current Visit: No Status: Acute Plan to address problem: Atrial fibrillation, chronic rate control strategy. on diltiazem and atenolol at low doses. patient states that his long-term oral anticoagulation was discontinued a year ago due to nosebleeds. chronic longstanding anemia, Hct was 26 in 2015. Initiated on low dose Eliquis 2.5 BID. Continue current management of chronic atrial fibrillation. Monitor labs closely. Subjective Date of service: 10/06/19 Interval history: No interval changes. Patient reports his breathing is improving. Objective Vital Signs Temp Pulse Resp BP BP Pulse Ox 10/06/19 08:02 98.2 F 72 18 128/82 92 10/06/19 05:28 22 10/06/19 04:43 98.0 F 88 18 113/68 92 10/05/19 23:30 98.0 F 18 108/76 10/05/19 21:11 97 10/05/19 20:52 74 10/05/19 19:50 97.4 F L 74 18 91/72 94 10/05/19 17:28 115 H 114/82 10/05/19 15:52 98.1 F 63 17 114/82 92 10/05/19 15:50 98.1 F 66 17 114/82 90 10/05/19 13:30 98 10/05/19 13:14 101/68 10/05/19 11:37 97.3 F L 59 L 17 99/73 90 - Physical Examination General: No Apparent Distress HEENT: Positive: PERRL Neck: Positive: neck supple Cardiac: Positive: irregularly irregular Lungs: Positive: Decreased Breath Sounds Neuro: Positive: Grossly Intact Extremities: Present: +1 Edema - Labs and Meds Comprehensive Metabolic Panel 10/05/19 Range/Units 15:49 Potassium 3.7 (3.6-5.0) mmol/L
[2019-10-07] MEDS: FUROSEMIDE 40 MG/4 ML INJ IV SCH (05:44)
[2019-10-07] MEDS: methIMAzole 5 MG TAB PO SCH (05:44)
[2019-10-07 05:57] LABS: Basophils % (Auto) 0.5 % (0.0-1.8); Eosinophils # (Auto) 0.2 K/mm3 (0.0-0.4); Hematocrit 25.7 % (35.5-45.6); Hemoglobin 8.7 gm/dl (11.8-15.2); Lymphocytes # (Auto) 2.1 K/mm3 (1.2-5.4); Lymphocytes % (Auto) 27.4 % (13.4-35.0); Mean Corpuscular HGB Conc 34 % (32-34); Mean Corpuscular Volume 96 fl (84-94); Monocytes # (Auto) 0.7 K/mm3 (0.0-0.8); Monocytes % (Auto) 8.9 % (0.0-7.3); Platelet Count 306 K/mm3 (140-440); Red Blood Count 2.68 M/mm3 (3.65-5.03); Red Cell Distribution Width 18.1 % (13.2-15.2)
[2019-10-07 06:19] LABS: BUN/Creatinine Ratio 9; Blood Urea Nitrogen 8 mg/dL (9-20); Calcium 8.1 mg/dL (8.4-10.2); Hemolysis Index 112
--- NOTE | 2019-10-07 09:35 | Discharge Summary ---
Providers - Providers Date of Admission: 10/03/19 13:15 Date of discharge: 10/07/19 Attending physician: KINDRA PUGA 10/03/19 14:05 Consult to Physician [CONS] Routine Comment: Consulting Provider: NADIA BUTTS Physician Instructions: Reason For Exam: CHF Primary care physician: SERGIO GUSTAFSON Hospitalization Condition: Fair Hospital course: Patient is 53 yo with chronic CHF, hypertension, hyperthyroidism,atrial fibrillation. He presented to Emergency Department with shortness of breath and swelling of legs for few days. Patient stated he has been on Lasix for CHF but ran out of all medications including Lasix about 1 week ago. Shortness of breath is worse on lying flat and worse on exertion. He denied chest pain. Patient was seen and evaluated in Emergency Department. He was diagnosed with acute respiratory failure due to CHF exacerbation. Also has hypokalemia with Potassium of 2.3. In addition EKG revealed rapid atrial fibrillation and pulmonary edema on CXR. He was given lasix iv, and admitted to Telemetry. Patient was evaluated by Cardiology, started on Eliquis. His symptoms improved, resolved, he was weaned off Oxygen and discharged home on Eliquis,to follow as outpatient. Acute on chronic systolic CHF exacerbation Patient ran out of meds including lasix 1 week ago Admitted to Telemetry Treated with Lasix iv, Metoprolol, Aldactone Cardiology was following Echo shows EF 15-20% Acute respiratory failure due to CHF exacerbation supplemental Oxygen Severe hypokalemia Repleted Afib w RVR Treated with betablockers, cardizem cardiology consulted, following Eliquis added by Cardiology Hyperthyroidism Continue Tapazole 10/05/2019 Patient with acute respiratory failure due to acute on chronic re on c hronic CHF. Also has rapid afib. Eliquis added by Cardiology today. Hopefully dc home in 1-2 days. 10/06/19 Patient with acute respiratory failure due to acute on chronic re on chronic CHF. Also has rapid afib. Eliquis added by Cardiology yesterday. he still gets shortness of breath, worse on exertion even on Oxygen Not ready for discharge. Total time spent on discharge, 35 mins Disposition: DC-01 TO HOME OR SELFCARE Core Measure Documentation - Palliative Care Palliative Care/ Comfort Measures: Not Applicable - Core Measures Any of the following diagnoses?: heart failure, none - Heart Failure Discharge Requirements ALEKSANDAR/ARB for LVSD if EF <40%: Yes Beta rose at discharge: Yes Exam - Constitutional Vitals: Temp Pulse Resp BP Pulse Ox 97.5 F L 64 20 113/83 95 10/07/19 08:07 10/07/19 08:07 10/07/19 08:07 10/07/19 08:07 10/07/19 08:07 Plan Activity: advance as tolerated Diet: low fat, low cholesterol, low salt Additional Instructions: 1.Follow up with PCP in 1 week. 2.Follow up with Dr. Butts, Cardiology in 1 week. 3.No strenous activity until cleared by Cardiology. Plan of Treatment: 1.Follow up with PCP in 1 week. 2.Follow up with Dr. Butts,Cardiology in 1 week 3.No strenous activity until cleared by Cardiology. Follow up with: SERGIO GUSTAFSON MD [Primary Care Provider] - 3-5 Days Prescriptions: Spironolactone [Aldactone] 25 mg PO QDAY #30 tablet dilTIAZem CD [Cardizem CD] 180 mg PO QDAY #30 capsule Apixaban [Eliquis] 2.5 mg PO Q12HR #60 tablet Furosemide [Lasix TAB] 40 mg PO QDAY #90 tablet Metoprolol [Lopressor TAB] 50 mg PO BID #60 tablet Esomeprazole Magnesium [NexIUM] 40 mg PO QDAY #30 lisinopriL [Zestril TAB] 10 mg PO QDAY #30 tablet
[2019-10-07] MEDS: METOPROLOL TARTRATE 50 MG TAB PO SCH (09:46)
[2019-10-07] MEDS: PANTOPRAZOLE 40 MG TAB PO SCH (09:46)
[2019-10-07] MEDS: SPIRONOLACTONE 25 MG TAB PO SCH (09:46)
[2019-10-07] MEDS: APIXABAN 2.5 MG TAB PO SCH (09:46)
[2019-10-07 09:47] VITALS: BP 111/81
[2019-10-07] MEDS: dilTIAZem CD 180 MG CAP PO SCH (09:47)
--- NOTE | 2019-10-07 11:15 | Progress Note ---
Assessment and Plan - Patient Problems (1) CHF exacerbation Current Visit: Yes Status: Acute Plan to address problem: Guideline directed medical therapy for chronic systolic left ventricular failure. (2) Atrial fibrillation with RVR Current Visit: No Status: Acute Plan to address problem: Chronic atrial fibrillation and a rate control strategy, and long-term oral anticoagulation with Eliquis as previously outlined. Subjective Date of service: 10/07/19 Interval history: Patient is comfortable in no acute distress. He is planned for discharge today. Objective Vital Signs Temp Pulse Resp BP Pulse Ox 10/07/19 10:08 94 10/07/19 09:47 111/81 10/07/19 09:46 103 H 111/81 10/07/19 08:07 97.5 F L 64 20 113/83 95 10/07/19 04:17 97.5 F L 82 18 120/84 93 10/06/19 23:36 98.3 F 16 94/65 10/06/19 21:44 72 10/06/19 21:28 99.0 F 109 H 22 106/86 91 10/06/19 21:11 95 10/06/19 15:54 63 107/83 93 10/06/19 12:29 98.2 F 103 H 18 111/81 100 10/06/19 12:00 72 - Physical Examination General: Appears Well, No Apparent Distress HEENT: Positive: PERRL Neck: Positive: neck supple Cardiac: Positive: irregularly irregular Lungs: Positive: clear to auscultation Neuro: Positive: Grossly Intact Abdomen: Positive: Soft Skin: Positive: Clear Extremities: Present: +1 Edema - Labs and Meds CBC 10/07/19 Range/Units 04:58 WBC 7.5 (4.5-11.0) K/mm3 RBC 2.68 L (3.65-5.03) M/mm3 Hgb 8.7 L (11.8-15.2) gm/dl Hct 25.7 L (35.5-45.6) % Plt Count 306 (140-440) K/mm3 Lymph # 2.1 (1.2-5.4) K/mm3 [place] # 0.7 (0.0-0.8) K/mm3 Eos # 0.2 (0.0-0.4) K/mm3 Baso # 0.0 (0.0-0.1) K/mm3 Comprehensive Metabolic Panel 10/07/19 Range/Units 04:58 Sodium 138 (137-145) mmol/L Potassium 3.9 (3.6-5.0) mmol/L Chloride 94.1 L (98-107) mmol/L Carbon Dioxide 29 (22-30) mmol/L BUN 8 L (9-20) mg/dL Creatinine 0.9 (0.8-1.5) mg/dL Glucose 98 (75-100) mg/dL Calcium 8.1 L (8.4-10.2) mg/dL
== END 2019-10-07 12:01 | disposition home or self-care (01) | DRG 291 ==
LOC: ED 11:14 → 4A 13:15
PROVIDERS: ADMIT Internal Medicine; ATTEND Internal Medicine
DX: I11.0 Hypertensive heart disease with heart failure (principal); J96.00 Acute respiratory failure, unspecified whether with hypoxia or hypercapnia; I48.20 Chronic atrial fibrillation, unspecified; I50.23 Acute on chronic systolic (congestive) heart failure; E87.6 Hypokalemia; E05.90 Thyrotoxicosis, unspecified without thyrotoxic crisis or storm; I42.0 Dilated cardiomyopathy; D64.9 Anemia, unspecified; Z79.01 Long term (current) use of anticoagulants; Z79.899 Other long term (current) drug therapy
CPT/HCPCS: 36415; 71045; 71275; 80048; 80076; 83735; 83880; 84132; 84439; 84443; 84484; 85025; 85379; 85610; 85730; 87040; 93005; 93306; 93970; 94640; 94760; 99406; G0378; J1650; J1940; J2405; J3475; J3480; Q9967

== ENCOUNTER 2019-11-05 07:41 | Emergency (ER) | payer SELFPAY ==
[2019-11-05 07:55] VITALS: BP 99/67
--- NOTE | 2019-11-05 08:20 | Emergency Department Report ---
Chief Complaint: Medical Clearance Stated Complaint: MED REFILL - HPI History of Present Illness: 53-year-old -[place] male presents to the emergency room requesting refills on his medications. Patient states he does not have any money to go to his primary care provider. - Exam Vital Signs: Vital Signs 11/05/19 07:49 Temperature 99 F Pulse Rate 93 H Respiratory 20 Rate Blood Pressure 99/67 O2 Sat by Pulse 99 Oximetry Physical Exam: Patient is alert and oriented x3 no acute distress nontoxic in appearance vital signs are stable. MSE screening note: Focused history and physical exam performed. Due to findings the following was ordered: 53-year-old -[place] male presents to the emergency room requesting refills on his medications. Patient states he does not have any money to go to his primary care provider. Discussed with patient he needs to follow-up with his primary care provider as the emergency room does not provide primary care. ED Disposition for MSE Disposition: Z- MED SCREENING EXAM-LEFT Is pt being admited?: No Does the pt Need Aspirin: No Condition: Stable Additional Instructions: Follow-up with your primary care provider Referrals: ANNE-MARIE GUSTAFSON MD [Primary Care Provider] - 3-5 Days
== END 2019-11-05 08:21 | disposition left against medical advice (07) ==
LOC: ED 07:41
DX: Z76.0 Encounter for issue of repeat prescription (principal); Z53.21 Procedure and treatment not carried out due to patient leaving prior to being seen by health care provider